=== PATIENT | male | born 1975 | race Caucasian/White ===

== ENCOUNTER 2022-01-29 15:03 | Emergency (ER) | payer OTHER ==
[~2022-01-29] VITALS: Ht 170.2 cm; Wt 66.7 kg
[2022-01-29 15:18] VITALS: BP 153/94
--- NOTE | 2022-01-29 15:34 | NUR ---
Patient ambulated with steady gait to bed 2.
--- NOTE | 2022-01-29 15:47 | NUR ---
46 Y/O MALE BIB SELF C/O SOB SATTING AT 99% RA, STATED THAT WHEN THE SEASONS STARTED CHANGING HE STARTED FEELING REALLY ANXIOUS AND SCARED. NICKY PMH: DENIES
--- NOTE | 2022-01-29 15:48 | NUR ---
DR PINEDO AT BEDSIDE FOR EVAL
[2022-01-29] MEDS ORDERED: LORazepam 1 MG TAB PO ONE (15:50)
--- NOTE | 2022-01-29 15:58 | NUR ---
RAD AT BEDSIDE
[2022-01-29] MEDS ORDERED: ATI.5 PO ×3 (17:53→22:11)
[2022-01-29 18:16] VITALS: BP 112/69
--- NOTE | 2022-01-29 18:17 | NUR ---
Patient discharged with v/s stable. Written and verbal after care instructions ABOUT ANXIETY given and explained. Patient alert, oriented and verbalized understanding of instructions. Ambulatory with steady gait. All questions addressed prior to discharge. ID band removed. Patient advised to follow up with PMD. Rx of ATIVAN given. Patient educated on indication of medication including possible reaction and side effects. Opportunity to ask questions provided and answered.
== END 2022-01-29 18:17 | disposition home or self-care (01) ==
LOC: MED 15:03
DX: R06.00 Dyspnea, unspecified (principal); F41.9 Anxiety disorder, unspecified; Z79.899 Other long term (current) drug therapy
CPT/HCPCS: 71045; 93005; 99283